=== PATIENT | female | born 1990 | race Two or more races ===

== ENCOUNTER 2024-04-02 13:09 | Emergency (ER) | payer MEDICAID, SELFPAY ==
[2024-04-02 13:10] VITALS: BMI 29.3
[2024-04-02 13:15] VITALS: BP 101/57; PULSE 67; RESP 16; TEMP 37.1; O2SAT 100
[2024-04-02] MEDS: CYCLObenzaPRINE 5 MG TABLET 10 MG PO (13:41)
[2024-04-02] MEDS: KETOROLAC INJ 30 MG/ML VIAL IM (13:43)
--- NOTE | 2024-04-02 16:58 | EDNOTE_ITS ---
<Statement entered by Em Davis MD - 04/09/24 18:13> As co-signing physician, I was present and available for consult prn. I concur with the plan and care as documented by the midlevel provider. ED Extremity Problem RME/HPI General Chief complaint: Extremity Problem,Nontraumatic Stated complaint: LEFT SHOULDER AND ARM PAIN Time Seen by Provider: 04/02/24 13:28 Arrival date/time: 04/02/24 13:09 33-year-old female presents emergency department today saying she woke up yesterday and she cannot move her neck when she tries to move her neck [id number] she has pain Limitations: no limitations Related Data Previous Rx's ?Medication ?Instructions ?Recorded cyclobenzaprine 10 mg tablet 10 mg PO TID PRN muscle spasm 10 04/02/24 days #30 tab-caps ibuprofen 600 mg tablet 600 mg PO Q6H #30 tabs 04/02/24 Allergies Allergy/AdvReac Type Severity Reaction Status Date / Time No Known Allergies Allergy Verified 04/02/24 13:10 Review of Systems Review of Systems Systems Reviewed: All systems reviewed, normal except as documented Constitutional Constitutional: Reports system reviewed and no additional complaints, except as documented, Denies fever(s) and Denies headache(s) Eyes Eyes: Reports system reviewed and no additional complaints, except as documented and Denies blurry vision ENT Ears, Nose, Mouth, and Throat: Reports system reviewed and no additional complaints, except as documented, Denies headache(s), Denies nasal congestion, Denies nasal discharge and Reports neck pain Cardiovascular Cardiovascular: Reports system reviewed and no additional complaints, except as documented, Denies chest pain and Denies dyspnea Respiratory Respiratory: Reports system reviewed and no additional complaints, except as documented, Denies chest congestion, Denies cough and Denies dyspnea Gastrointestinal Gastrointestinal: Reports system reviewed and no additional complaints, except as documented and Denies abdominal pain Musculoskeletal Musculoskeletal: Reports neck pain Integumentary/Breasts Skin/Breast: Reports system reviewed and no additional complaints, except as doc umented and Denies rash Neurologic Neurologic: Reports system reviewed and no additional complaints, except as documented, Reports as per HPI and Denies headache(s) Past Medical History Social History SMOKING STATUS: Never smoker ED Exam General Limitations: Present no limitations General appearance: Present alert and in no apparent distress Head Head exam: Present atraumatic, normocephalic and normal inspection Eye Eye exam: Present normal appearance, PERRL and EOMI; Absent conjunctival injection ENT ENT exam: Present normal exam, normal oropharynx and mucous membranes moist Neck Neck exam: Present normal inspection, full ROM and trachea midline Chest Chest inspection: Present normal inspection and symmetric chest wall rise Respiratory Respiratory exam: Present normal lung sounds bilaterally; Absent respiratory distress, wheezes, stridor or accessory muscle use Cardiovascular Cardiovascular exam: Present regular rate, normal rhythm and normal heart sounds Abdominal Exam Abdominal exam: Present soft and normal bowel sounds Extremities Exam Extremities exam: Present normal inspection and full ROM Back Exam Back exam: Present normal inspection and full ROM Neurological Exam Neurological exam: Present alert, oriented X3, CN II-XII intact, normal gait and reflexes normal; Absent motor sensory deficit Psychiatric Psychiatric exam: Present normal affect and normal mood Skin Skin exam: Present warm, dry, intact and normal color Course Quality Measures none Orders Category Date Time Status CYCLObenzaPRINE [Flexeril] Med 04/02/24 13:35 Discontinued 10 mg PO X1 ONE Ketorolac Inj [Toradol Inj] Med 04/02/24 13:35 Discontinued 30 mg IM X1 ONE Vital Signs Vital signs: Vital Signs Temperature 98.8 F 04/02/24 13:15 Pulse Rate 67 04/02/24 13:15 Respiratory Rate 16 04/02/24 13:15 Blood Pressure 101/57 L 04/02/24 13:15 Pulse Oximetry (%) 100 04/02/24 13:15 Oxygen Delivery Method Room Air 04/02/24 13:15 O2 saturation 100% room air within normal limits Extremity Problem MDM Narrative MDM Narrative:: 33-year-old female presents emergency department today saying she woke up yesterday and she cannot move her neck when she tries to move her neck [id number] she has pain On exam patient appears to torticollis when patient moves to the left she has pain in her neck which radiates down to her left shoulder blade Patient reports no recent injury no chest pain or shortness of breath Patient given pain medication here discharge home with pain medications Explained to the patient that if symptoms persist or worsen she may need some imaging but at this time I do believe this is torticollis Patient discharged home in no distress to follow-up with primary care doctor in the next 24 to 48 hours and for any worsening symptoms to return to the ER immediately Patient data External records reviewed:: [facility] previous records Clinical information provided by:: patient Social determinants that could affect healthcare access:: none Patient has the following chronic illnesses:: None How is presenting disease/condition affected by chronic disease/condition?: no chronic disease Evaluation data The following diagnostics were reviewed and interpreted by me:: other (specify) (N/A) Lab and/or radiology exams considered but not ordered:: Consider not ordered Interpretation Summary: N/A Medications / Prescriptions Medications or Prescriptions considered but not ordered:: Given Medication administrations:: Medication Administration History Discontinued Medications Cyclobenzaprine HCl (Cyclobenzaprine 5 Mg Tablet) 10 mg PO X1 ONE Stop: 04/02/24 13:36 Last Admin: 04/02/24 13:41 Dose: 10 mg Documented By: MELO Ketorolac Tromethamine (Ketorolac Inj 30 Mg/Ml Vial) 30 mg IM X1 ONE Stop: 04/02/24 13:36 Last Admin: 04/02/24 13:43 Dose: 30 mg Documented By: MELO Given Consultations Consultation(s) initiated? (list below): No Diagnosis Extremity Problem Differential Diagnosis: other (Neck sprain, neck strain, cervical fracture, cervical strain) Most likely diagnosis given after review of the tests above:: Torticollis Admission Indicated Admission indicated?: not indicated Admission Request Was there a request for admission?: No Disposition Plan Disposition Plan: Discharge Discharge Attestation Discharge Attestation: The patient and all family members were given an opportunity to ask questions and understood the discharge instructions. Discharge instructions specifically effects, indications for sooner follow up or return to the emergency department, and the expected course of current diagnosis. Patient condition: Stable Discharge Plan Plan Patient Disposition: HOME (Self Care) Disposition Comment: Stable Prescriptions/Referrals Prescriptions/Med Rec: New cyclobenzaprine 10 mg tablet 10 mg PO TID PRN (Reason: muscle spasm) 10 Days Qty: 30 0RF ibuprofen 600 mg tablet 600 mg PO Q6H Qty: 30 0RF Problem List Clinical Impression: Acute torticollis Patient/Caregiver Discharge Instructions Education Materials: Torticollis (Wry Neck) Additional Instructions: Please follow up with your primary care doctor in the next 24-48hrs for any worsening symptoms return here immediately Print Language: Icelandic Stand Alone Forms: Angelia Award Info., Work/School Release, Patient Portal Info Letter ENID/SONG LYRICIST Supervising Physician PA/SONG LYRICIST Supervising Physician: Dr. Davis
== END 2024-04-02 13:50 | disposition home or self-care (01) ==
PROVIDERS: Emergency Provider Emergency Medicine; PCP Family Medicine
DX: M43.6 Torticollis (principal)
CPT/HCPCS: 96372; 99283; J1885; A9270

== ENCOUNTER 2024-04-18 18:46 | Emergency (ER) | payer MEDICAID, SELFPAY ==
[2024-04-18 18:47] VITALS: BMI 29.2
[2024-04-18 18:57] VITALS: BP 107/70; PULSE 87; RESP 20; TEMP 36.7; O2SAT 98
--- NOTE | 2024-04-18 19:04 | PD.EDEYE ---
ED Eye Problem RME/HPI General Chief complaint: Eye Problems Stated complaint: LEFT EYE PAIN WITH REDNESS Time Seen by Provider: 04/18/24 18:49 Source: patient Arrival date/time: 04/18/24 18:46 33-year-old female no significant past medical history presents emergency department complaining of left eye redness and itchiness after grapevine leaf got into her eye. 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 Patient denies any blurry vision or visual disturbances. Mode of arrival: ambulatory Limitations: no limitations Related Data Patient tetanus UTD: Yes Previous Rx's ?Medication ?Instructions ?Recorded ibuprofen 600 mg tablet 600 mg PO Q6H #30 tabs 04/02/24 erythromycin 5 mg/gram (0.5 %) eye 0.5 inch ophthalmic (eye) QID 5 04/18/24 ointment days #3.5 grams Allergies Allergy/AdvReac Type Severity Reaction Status Date / Time No Known Allergies Allergy Verified 04/18/24 18:51 Review of Systems Review of Systems Systems Reviewed: All systems reviewed, normal except as documented Constitutional Constitutional: Reports system reviewed and no additional complaints, except as documented, Denies body ache(s), Denies chills and Denies fever(s) Eyes Eyes: Reports system reviewed and no additional complaints, except as documented, Denies change in vision, Reports irritation and Reports itchy eyes ENT Ears, Nose, Mouth, and Throat: Reports system reviewed and no additional complaints, except as documented, Denies disequilibrium, Denies dizziness, Denies sore throat and Denies vertigo Cardiovascular Cardiovascular: Reports system reviewed and no additional complaints, except as documented, Denies chest pain and Denies dyspnea Respiratory Respiratory: Reports system reviewed and no additional complaints, except as documented, Denies chest congestion, Denies cough and Denies dyspnea Gastrointestinal Gastrointestinal: Reports system reviewed and no additional complaints, except as documented, Denies abdominal pain, Denies nausea and Denies vomiting Musculoskeletal Musculoskeletal: Reports system reviewed and no additional complaints, except as documented, Denies abnormal gait and Denies arthralgias Integumentary/Breasts Skin/Breast: Reports system reviewed and no additional complaints, except as documented, Denies erythema, Denies rash and Denies wounds Neurologic Neurologic: Reports system reviewed and no additional complaints, except as documented, Denies abnormal gait, Denies disequilibrium, Denies dizziness and Denies vertigo Allergic/Immunologic Allergic/Immunologic: Reports itchy eyes Past Medical History Social History SMOKING STATUS: Never smoker ED Exam General Limitations: Present no limitations General appearance: Present alert and in no apparent distress Head Head exam: Present atraumatic Eye Eye exam: Present normal appearance, PERRL, EOMI and scleral icterus; Absent periorbital swelling Expanded Eye Exam Eyelids: bilateral: normal inspection Pupils: Bilateral: regular, round Sclera/Conjunctival: left: injection and right: normal inspection ENT ENT exam: Present normal exam, normal oropharynx and mucous membranes moist Neck Neck exam: Present normal inspection, full ROM and trachea midline Chest Chest inspection: Present normal inspection and symmetric chest wall rise Respiratory Respiratory exam: Present normal lung sounds bilaterally Cardiovascular Cardiovascular exam: Present regular rate, normal rhythm and normal heart sounds Abdominal Exam Abdominal exam: Present soft and normal bowel sounds Extremities Exam Extremities exam: Present normal inspection and full ROM Back Exam Back exam: Present normal inspection and full ROM Neurological Exam Neurological exam: Present alert, oriented X3 and CN II-XII intact Psychiatric Psychiatric exam: Present normal affect and normal mood Skin Skin exam: Present warm, dry, intact and normal color Course Quality Measures none Orders Category Date Time Status Miranda Lamp to Bedside X1 Care 04/18/24 19:03 Completed Erythromycin Op Oint 0.5% Med 04/18/24 20:15 Discontinued 1 gm LEFT EYE X1 ONE Fluorescein Sodium [[id number]] Med 04/18/24 19:03 Discontinued 1 mg LEFT EYE X1 ONE TETRACAINE Op Ainsha 0.5% [Pontocaine Op Anisha 0.5%] Med 04/18/24 19:03 Discontinued 1 drop LEFT EYE X1 ONE Vital Signs Vital signs: Vital Signs Temperature 98.1 F 04/18/24 18:57 Pulse Rate 87 04/18/24 18:57 Respiratory Rate 20 04/18/24 18:57 Blood Pressure 107/70 04/18/24 18:57 Pulse Oximetry (%) 98 04/18/24 18:57 Oxygen Delivery Method Room Air 04/18/24 18:57 98% room air within normal limits. Procedures -ED Miranda Lamp Exam Left eye: Flourescein uptake:: Yes Miranda Lamp Findings: Corneal abrasion Additional comments: Left eye Eye MDM Narrative MDM Narrative:: 33-year-old female no significant past medical history presents emergency department complaining of left eye redness and itchiness after grapevine leaf got into her eye. 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 Patient denies any blurry vision or visual disturbances. On exam right eye completely normal without any redness or scleral injection. Left eye mild redness to sclera with no visual disturbances. Patient reports is not a contact lens user. Miranda lamp exam performed with small corneal abrasion. Patient discharged erythromycin ointment instructed to have close follow-up with primary care provider and request referral to automatic centrifugal station operator. Instructed to return to emergency department for any worsening symptoms or as needed. Patient data External records reviewed:: [facility] previous records Clinical information provided by:: patient Social determinants that could affect healthcare access:: none Patient has the following chronic illnesses:: None How is presenting disease/condition affected by chronic disease/condition?: no chronic disease Evaluation data The following diagnostics were reviewed and interpreted by me:: lab results Lab and/or radiology exams considered but not ordered:: Ordered Interpretation Summary: Interpreted by me Medications / Prescriptions Medications or Prescriptions considered but not ordered:: Ordered Medication administrations:: Medication Administration History Discontinued Medications Erythromycin (Erythromycin Op Oint 0.5% 1 Gm Packet) 1 gm LEFT EYE X1 ONE Stop: 04/18/24 20:16 Last Admin: 04/18/24 20:26 Dose: 1 gm Documented By: MELO Co-signed By: VIKY Fluorescein Sodium (Fluorescein Sod 1 Mg Strp) 1 mg LEFT EYE X1 ONE Stop: 04/18/24 19:04 Last Admin: 04/18/24 19:45 Dose: 1 mg Documented By: MELO Tetracaine HCl (Tetracaine Pf Op Anisha 0.5% 4 Ml Drpette) 1 drop LEFT EYE X1 ONE Stop: 04/18/24 19:04 Last Admin: 04/18/24 19:45 Dose: 1 drop Documented By: MELO Given Consultations Consultation(s) initiated? (list below): No Diagnosis Eye Problem Differential Diagnosis: corneal abrasion, conjunctivitis, periorbital cellulitis, subconjunctival hemorrhage and corneal ulcer Most likely diagnosis given after review of the tests above:: Corneal abrasion Admission Indicated Admission indicated?: not indicated Admission Request Was there a request for admission?: No Disposition Plan Disposition Plan: Discharge Discharge Attestation Discharge Attestation: The patient and all family members were given an opportunity to ask questions and understood the discharge instructions. Discharge instructions specifically effects, indications for sooner follow up or return to the emergency department, and the expected course of current diagnosis. Patient condition: Stable Discharge Plan Plan Patient Disposition: HOME (Self Care) Disposition Comment: Stable Prescriptions/Referrals Prescriptions/Med Rec: New erythromycin 5 mg/gram (0.5 %) ointment 0.5 inch ophthalmic (eye) QID 5 Days Qty: 3.5 0RF No Action ibuprofen 600 mg tablet 600 mg PO Q6H Qty: 30 0RF Problem List Clinical Impression: Corneal abrasion Patient/Caregiver Discharge Instructions Discharge Activity: activity as tolerated Education Materials: ED Corneal Abrasion Additional Instructions: Apply medication as prescribed. Follow-up with primary care provider in 24 to 48 hours and request referral to automatic centrifugal station operator. Return immediately to emergency department for any visual changes worsening symptoms or as needed. Print Language: Ukrainian Stand Alone Forms: Angelia Award Info., Patient Portal Info Letter ENID/DONIS Supervising Physician ENID/DONIS Supervising Physician: Dr. Ordoñez
[2024-04-18] MEDS: TETRACAINE PF OP SOL 0.5% 4 ML DRPETTE 1 DROP LEFT EYE (19:45)
[2024-04-18] MEDS: FLUORESCEIN SOD 1 MG STRP LEFT EYE (19:45)
[2024-04-18] MEDS: Erythromycin Op Oint 0.5% 1 GM PACKET LEFT EYE (20:26)
== END 2024-04-18 20:30 | disposition home or self-care (01) ==
PROVIDERS: Emergency Provider Emergency Medicine; PCP Family Medicine
DX: S05.02XA Injury of conjunctiva and corneal abrasion without foreign body, left eye, initial encounter (principal); X58.XXXA Exposure to other specified factors, initial encounter
CPT/HCPCS: 99283; A9270